=== PATIENT | male | born 1990 | race Two or more races ===

== ENCOUNTER 2017-02-21 10:53 | Emergency (ER) | payer BC ==
[~2017-02-21] VITALS: Ht 188 cm; Wt 113.4 kg
[2017-02-21 12:39] VITALS: BP 129/79
== END 2017-02-21 13:59 | disposition home or self-care (01) ==
LOC: ER 10:53
DX: S40.011A Contusion of right shoulder, initial encounter (principal); R51 Headache; S60.512A Abrasion of left hand, initial encounter; S60.511A Abrasion of right hand, initial encounter; V58.5XXA Driver of pick-up truck or van injured in noncollision transport accident in traffic accident, initial encounter; Y93.89 Activity, other specified; Y92.410 Unspecified street and highway as the place of occurrence of the external cause; Y99.8 Other external cause status